=== PATIENT | male | born 1980 | race Caucasian/White ===

== ENCOUNTER 2017-03-06 08:17 | Day surgery (SDC) | payer BC ==
[2017-03-01 14:17] VITALS: BMI 31.8
--- NOTE | 2017-03-05 19:42 | PREOP ---
DATE OF ADMISSION: 03/06/2017 DATE OF SURGERY: 03/06/2017 ADMISSION DIAGNOSIS: Lesion of hypopharynx. HISTORY OF PRESENT ILLNESS: This 36-year-old gentleman had an upper GI endoscopy and a lesion was identified in his hypopharynx. On flexible laryngoscopy, an elevated lesion was identified in his right lateral piriform sinus. This has remained and he is now admitted for surgical excision of the lesion. PAST MEDICAL HISTORY: Primary medical doctor is Dr. Deangelo Pierce. He has a history of acid reflux, food allergies, and asthma. He is a former smoker and has quit for over a year. ALLERGIES TO MEDICATIONS: None known. PRESENT MEDICATIONS: Omeprazole, ranitidine, and Proventil p.r.n. On exam, patient is a well-developed male in no acute distress. Head is normal. Eyes are clear. Ears unremarkable. The nose has some minor inflammation. The oral cavity is normal. Soft palate is elongated, and an elongated uvula. Tonsils are mildly enlarged. Flexible laryngoscopy demonstrates a right piriformis sinus elevated lesion with a possibly verrucous appearance along the lateral wall superiorly. The remainder of his head and neck examination is unremarkable. IMPRESSION: Right hypopharyngeal lesion. PLAN: Direct microlaryngoscopy with excision of hypopharyngeal lesion. INFORMED CONSENT: The patient understands the indications, alternatives, nature, risks and benefits of proposed surgery, potential complications including but not limited to anesthesia, bleeding, infection, voice change, need for further treatment, and dental injury were discussed in detail. He understands and accepts these risks and wished to proceed with surgery. Questions are answered fully. JULITA MAIN M.D. [id number]
--- NOTE | 2017-03-06 09:12 | HP ---
History & Physical Update - History History: No Change - Physical Physical: No Change - Assessment Assessment: No Change - Plan Plan: No Change
[2017-03-06] MEDS ORDERED: MIDAZOLAM HCL 2 MG/2 ML SINGLE DOSE VIAL ONE (09:13)
[2017-03-06] MEDS ORDERED: PROPOFOL 20 ML ONE ×2 (09:19→09:20)
[2017-03-06] MEDS ORDERED: ROCURONIUM BROMIDE 50 MG/5 ML VIAL ONE (09:20)
[2017-03-06] MEDS ORDERED: NEOSTIGMINE METHYLSULFATE 0.5 MG/ML - 10 ML MDV ONE (10:10)
[2017-03-06] MEDS ORDERED: ACETAMINOPHEN 325 MG TABLET (FP) PO PRN (10:19)
[2017-03-06] MEDS ORDERED: TRIMETHOBENZAMIDE HCL 200MG/2ML INJ IM PRN (10:19)
[2017-03-06] MEDS ORDERED: oxyCODONE HCL 5 MG TABLET PO PRN (10:19)
--- NOTE | 2017-03-06 10:19 | OP ---
Operative Note - Note: Operative Date: 03/06/17 Pre-Operative Diagnosis: right hypopharyngeal lesion Operation: microlaryngoscopy with carbon dioxide laser excision of right hypopharyngeal lesion Findings: 3mm verrucous pedunculated lesion of right lateral hypopharynx normal surrounding mucosa Implants: none Post-Operative Diagnosis: Same as Pre-op Surgeon: Raleigh Collins Time Analysis Clerk: Klarissa Rendon MD Anesthesia: General Specimens Removed: right hypopharyngeal lesion Estimated Blood Loss (mls): 0 Blood Volume Replaced (mls): 0 Operative Report Dictated: Yes
[2017-03-06] MEDS ORDERED: LACTATED RINGERS SOLUTION 1,000 ML IV SCH ×2 (10:30→10:45)
[2017-03-06] MEDS ORDERED: ONDANSETRON 4 MG/2 ML VIAL IVPUSH PRN (10:33)
[2017-03-06] MEDS ORDERED: PROMETHAZINE HCL 25 MG/1 ML VIAL IVPUSH PRN (10:33)
[2017-03-06 17:16] VITALS: BP 106/60; PULSE 69; TEMP 97.8
--- NOTE | 2017-03-07 00:44 | OP ---
DATE OF OPERATION: 03/06/2017 PREOPERATIVE DIAGNOSIS: Right hypopharyngeal lesion. POSTOPERATIVE DIAGNOSIS: Right hypopharyngeal lesion. PROCEDURE: laryngoscopy with carbon dioxide laser excision of right hypopharyngeal lesion. SURGEON: Julita Collins M.D. ANESTHESIOLOGIST: Klarissa Rendon M.D. ANESTHESIA: General via endotracheal tube. INDICATION: This 36-year-old gentleman has a region of the right hypopharynx which is found on laryngoscopy. This is not resolved, and he is now brought to surgery for treatment. FINDINGS: A 3-mm verrucous pedunculated lesion of the right lateral hypopharynx. Normal surrounding mucosa. PROCEDURE: Patient is brought to the operating room and placed on the operating room in supine position. General endotracheal anesthesia was induced to satisfactory level. He was prepped and draped in the usual fashion for surgery. Neck was extended with the shoulder roll. The upper dentition was protected with mouth guard. The laryngoscope was inserted and the lesion was exposed. The suspension arm was attached. The operating microscope with the attached CO2 laser was then used to visualize the lesion. It was palpated and was pedunculated. It was stretched and the surrounding mucosa was normal. The patient and all operating room personnel were properly protected using safety glasses for operating room personnel and moistened eye protector for the patient as well as wet towels to cover the laryngoscope and suspension arm. The carbon dioxide laser was then used at a power setting of 10 carter with repeating pulse. The stalk was transected in the area of normal mucosa. The lesion was removed and sent to pathology for routine studies including HPV studies. The attachment was inspected, and hemostasis was complete. No other visible lesions were identified on laryngoscopy. The laryngoscope was then removed, mouthgag was removed. Dentition was intact. Patient was then awakened from general anesthesia and transferred to PACU in stable condition. Estimated blood loss was zero. He received crystalloid during the procedure. The right hypopharyngeal lesion was sent to pathology for study. There were no complications. JULITA COLLINS M.D. NILSA/[id number]
--- NOTE | 2017-03-08 16:09 | PATH ---
Surgical Pathology Report Patient Name: NIRAV ALBERTO Med. Rec. #: [id number] /Age/Gender: 1980 (Age: 36) / M Account: [id number] Location: [facility] SURGICAL Taken: 03/06/2017 Received: 03/06/2017 Reported: 03/08/2017 Physicians: Raleigh Collins M.D. Specimen(s) Received LESION OF RIGHT HYPOPHARYNX Clinical History Lesion of right hypopharynx Rule out papilloma Final Diagnosis HYPOPHARYNX, RIGHT, LESION, BIOPSY: SQUAMOUS PAPILLOMA. NEGATIVE FOR HIGH-GRADE DYSPLASIA. Comment: HPV studies performed and interpreted at [place], [place] ([id number]) show the following: HPV High Risk (16/18): Negative HPV Low Risk (6/11): Negative HPV WSS (6,11,16,18,31,33,51): negative Electronically Signed Sixto Reis M.D. Gross Description Received in formalin labeled "lesion of right hypopharynx" is a 0.6 x 0.4 x 0.2 cm sweet soft tissue fragment. The specimen is submitted in toto in one cassette. /03/06/201703/06/2017
== END 2017-03-06 12:30 | disposition home or self-care (01) ==
LOC: JASU-SURG 08:17
PROVIDERS: ATTEND Otolaryngology
PROC: 0CBM8ZZ Excision of Pharynx, Via Natural or Artificial Opening Endoscopic (ICD-10-PCS; principal; 2017-03-06 09:00)
DX: D10.7 Benign neoplasm of hypopharynx (principal)
CPT/HCPCS: 88305-TC; 94760